=== PATIENT | female | born 1940 | race Caucasian/White ===

== ENCOUNTER 2017-02-03 14:29 | Inpatient (IN) | payer OTHER ==
[2017-02-03] MEDS ORDERED: ACETAMINOPHEN 500 MG TAB PO ONE (15:15)
[2017-02-03] MEDS ORDERED: NS 1,000 ML IV ONE ×2 (15:16→15:28)
--- NOTE | 2017-02-03 15:24 | EDPHY ---
H & P Stated Complaint: LOWER ABD PAIN/DIARRHEA/FEVER/NAUSEA Time Seen by Provider: 02/03/17 15:23 - Personal History Current Tetanus/Diphtheria Vaccine: Unsure - Medical/Surgical History Hx Asthma: No Hx Chronic Respiratory Disease: No Hx Diabetes: No Hx Cardiac Disease: No Hx Renal Disease: No Hx Cirrhosis: No Hx Alcoholism: No Hx HIV/AIDS: No Hx Splenectomy or Spleen Trauma: No Other PMH: BILAT HIP REPLACEMENTS/RA - Social History Smoking Status: Never smoked Constitutional: Initial Vital Signs Temperature (C) 38.7 C H 02/03/17 14:58 Heart Rate 63 02/03/17 14:58 Respiratory Rate 18 02/03/17 14:58 Blood Pressure 116/57 L 02/03/17 14:58 O2 Sat (%) 98 02/03/17 14:58 O2 Delivery Mode Room Air Allergies/Adverse Reactions: No Known Allergies Allergy (Unverified 02/03/17 14:56) Home Medications: Medication Instructions Recorded Herbals/Supplements -Info Only 1 ea PO DAILY 02/03/17 Ibuprofen [Motrin (*)] 200 - 600 mg PO Q4-6PRN PRN 02/03/17 traMADol [Ultram 50 mg (*)] 50 mg PO DAILY PRN 02/03/17 Medical Decision Making - Diagnostics Imaging Results: Imaging Impressions Abdomen CT 02/03/17 15:29 Impression: 1. Inflammatory wall thickening involving the terminal ileum, ascending colon, and transverse colon suggesting infectious/inflammatory colitis. Possible additional inflammatory mid ileal section of small bowel. 2. No drainable abscess, pneumoperitoneum, or bowel obstruction. 3. No evidence of appendicitis. 4. Previous inferior vena caval ligation with multiple venous collaterals in the retroperitoneum and right paracolic gutter. Findings discussed with Emergency Department physician, Forrest Hinton MD, at 1630 hours, 02/03/2017. Final report concurs with initial preliminary interpretation. Imaging: Discussed imaging studies w/ microscopist Radiologist ED Course/Re-evaluation: CHIEF COMPLAINT: Nausea, fever. HISTORY OF PRESENT ILLNESS: This patient is a 76 year old female arriving with her family complaining of nausea, diarrhea, fever, chills, and general abdominal discomfort onset yesterday around 10:00am. She is currently visiting from [place]. Her symptoms came on suddenly yesterday morning following walking the family's dog with her . She had had multiple episodes of diarrhea, but has not vomited. She currently feels very cold and continues to feel quite nauseous. She denies any abnormal food consumption or ill contacts. She denies chest pain, shortness of breath, urinary complaints, or other associated symptoms. REVIEW OF SYSTEMS: A 10 point review of systems was performed and is negative with the exception of the elements mentioned in the history of present illness. PHYSICAL EXAM: HR, BP, O2 Sat, RR. Temp noted General Appearance: Alert, well hydrated, appropriate, and non-toxic appearing. Head: Atraumatic without scalp tenderness or obvious injury Eyes: Pupils equal, round, reactive to light and accommodation, EOMI, no trauma , no injection. Ears: Clear bilaterally, no perforation, normal landmarks Nose: Atraumatic, no rhinorrhea, clear. Throat: There is no erythema or exudates, no lesions, normal tonsils, mucus membranes moist. Neck: Supple, nontender, no lymphadenopathy. Respiratory: No retractions, no distress, no wheezes, and no accessory muscle use. Lungs are clear to auscultation bilaterally. Cardiovascular: Regular rate and rhythm, no murmurs, rubs, or gallops. Good capillary refill all extremities. Gastrointestinal: Diffuse abdominal tenderness. Abdomen is soft, non-distended, no masses, no rebound, no guarding, no peritoneal signs. Musculoskeletal: Normal active ROM of all extremities, atraumatic. Neurological: Alert, appropriate, and interactive. Nonfocal neuro exam. Skin: No rashes, good turgor, no nodules on palpation. Past medical history: Rheumatoid arthritis (not currently taking immunosuppressants) Past surgical history: Hysterectomy, ligation of vena cava, bilateral hip replacements Family history: Noncontributory. Social history: Family at bedside. Visiting from [place]. . DIFFERENTIAL DIAGNOSIS: The differential diagnosis for the patient's nausea and diarrhea included but was not limited to gastroenteritis, gastritis, colitis, appendicitis, and medication side effect. MEDICAL DECISION [id number] year old female presents with two day history of nausea and diarrhea. Temperature 38.7 at triage. Exam reveals diffuse abdominal tenderness. Administered 1000mg PO Acetaminophen. IV established. Plan to administer 4mg IV Zofran and 1L IV NS for symptom relief. Plan for CT abdomen/pelvis. Plan for labs including CBC, BMP, liver, lipase, and UA. Labs show elevated white blood cell count, slight left shift. 16:[address] Kahn, radiologist. CT abdomen shows diffuse colitis of ascending and transverse colon as well as the distal ileum. No evidence of perforation of abscess. Plan to admit for diffuse colitis, diarrhea. Plan to administer 750mg IV Levaquin and 500mg IV Flagyl. 16:58 Reassessed patient. Discussed imaging results, antibiotic administration, and plan for admission. The patient and her family are comfortable with this plan. - Data Points Laboratory Results: Laboratory Results 02/03/17 15:20 02/03/17 15:20 02/03/17 02/03/17 15:20 15:20 WBC 9.59 10^3/uL H 10^3/uL (3.80-9.50) RBC 4.74 10^6/uL 10^6/uL (4.18-5.33) Hgb 14.8 g/dL g/dL (12.6-16.3) Hct 43.7 % % (38.0-47.0) MCV 92.2 fL fL (81.5-99.8) MCH 31.2 pg pg (27.9-34.1) MCHC 33.9 g/dL g/dL (32.4-36.7) RDW 13.6 % % (11.5-15.2) Plt Count 232 10^3/uL 10^3/uL (150-400) MPV 10.2 fL fL (8.7-11.7) Neut % (Auto) 88.9 % H % (39.3-74.2) Lymph % (Auto) 6.2 % L % (15.0-45.0) [place] % (Auto) 4.2 % L % (4.5-13.0) Eos % (Auto) 0.0 % L % (0.6-7.6) Baso % (Auto) 0.3 % % (0.3-1.7) Nucleat RBC Rel Count 0.0 % % (0.0-0.2) Absolute Neuts (auto) 8.53 10^3/uL H 10^3/uL (1.70-6.50) Absolute Lymphs (auto) 0.59 10^3/uL L 10^3/uL (1.00-3.00) Absolute Monos (auto) 0.40 10^3/uL 10^3/uL (0.30-0.80) Absolute Eos (auto) 0.00 10^3/uL L 10^3/uL (0.03-0.40) Absolute Basos (auto) 0.03 10^3/uL 10^3/uL (0.02-0.10) Absolute Nucleated RBC 0.00 10^3/uL 10^3/uL (0-0.01) Immature Gran % 0.4 % % (0.0-1.1) Immature Gran # 0.04 10^3/uL 10^3/uL (0.00-0.10) Sodium 133 mEq/L L mEq/L (134-144) Potassium 3.6 mEq/L mEq/L (3.5-5.2) Chloride 99 mEq/L mEq/L (97-110) Carbon Dioxide 20 mEq/l L mEq/l (22-31) Anion Gap 14 mEq/L mEq/L (8-16) BUN 19 mg/dL mg/dL (7-23) Creatinine 1.0 mg/dL mg/dL (0.6-1.0) Estimated GFR 54 Glucose 123 mg/dL H mg/dL (70-100) Calcium 9.1 mg/dL mg/dL (8.5-10.4) Total Bilirubin 0.8 mg/dL mg/dL (0.1-1.4) Conjugated Bilirubin 0.3 mg/dL mg/dL (0.0-0.5) Unconjugated Bilirubin 0.5 mg/dL mg/dL (0.0-1.1) AST 35 IU/L IU/L (14-46) ALT 43 IU/L IU/L (9-52) Alkaline Phosphatase 73 IU/L IU/L (38-126) Total Protein 6.9 g/dL g/dL (6.3-8.2) Albumin 4.0 g/dL g/dL (3.5-5.0) Lipase 43 IU/L IU/L (23-300) Medications Given: Discontinued Medications Acetaminophen (Tylenol) 1,000 mg PO EDNOW ONE Stop: 02/03/17 15:16 Last Admin: 02/03/17 15:20 Dose: 1,000 mg Hydromorphone HCl (Dilaudid) 0.5 mg IVP EDNOW ONE Stop: 02/03/17 15:29 Last Admin: 02/03/17 15:41 Dose: 0.5 mg Sodium Chloride (Ns) 1,000 mls @ 0 mls/hr IV ONCE ONE PRN Reason: Wide Open Stop: 02/03/17 15:17 Last Admin: 02/03/17 15:20 Dose: 1,000 mls Sodium Chloride (Ns) 1,000 mls @ 0 mls/hr IV EDNOW ONE; Wide Open PRN Reason: Protocol Stop: 02/03/17 15:29 Last Admin: 02/03/17 15:40 Dose: 1,000 mls Levofloxacin/Dextrose (Levaquin 750 Mg (Premix)) 150 mls @ 100 mls/hr IV EDNOW ONE PRN Reason: Protocol Stop: 02/03/17 18:19 Last Admin: 02/03/17 17:13 Dose: 150 mls Metronidazole/Sodium Chloride (Flagyl 500 Mg (Premix)) 100 mls @ 100 mls/hr IV EDNOW ONE PRN Reason: Protocol Stop: 02/03/17 17:49 Last Admin: 02/03/17 17:18 Dose: 100 mls Ondansetron HCl (Zofran) 4 mg IVP EDNOW ONE Stop: 02/03/17 15:29 Last Admin: 02/03/17 15:41 Dose: 4 mg Departure - Departure Disposition: [facility] Acute Clinical Impression: Colitis Diarrhea Qualifiers: Diarrhea type: presumed infectious Qualified Code(s): A09 - Infectious gastroenteritis and colitis, unspecified Condition: Fair Report Scribed for: Forrest Hinton Report Scribed by: Suzanne Sprague Date of Report: 02/03/17 Time of Report: 16:17
[2017-02-03] MEDS ORDERED: ONDANSETRON 4 MG/2 ML VIAL IVP ONE (15:28)
[2017-02-03] MEDS ORDERED: HYDROmorphONE/DILAUDID 1 MG/ML INJ IVP ONE (15:28)
[2017-02-03 15:37] LABS: % IMMATURE GRANULYOCYTES 0.4 % (0.0-1.1); ABSOLUTE IMMATURE GRANULOCYTES 0.04 10^3/uL (0.00-0.10); ADD DIFF? NO; ADD MORPH? NO; ADD SCAN? NO; ATYPICAL LYMPHOCYTE FLAG 0 (0-99); FRAGMENT RBC FLAG 0 (0-99); HEMATOCRIT 43.7 % (38.0-47.0); HEMOGLOBIN 14.8 g/dL (12.6-16.3); LEFT SHIFT FLG 50 (0-99); LIPEMIA HEMOLYSIS FLAG 90 (0-99); MEAN CELL HEMOGLOBIN 31.2 pg (27.9-34.1); MEAN CELL HEMOGLOBIN CONCENTR. 33.9 g/dL (32.4-36.7); MEAN CELL VOLUME 92.2 fL (81.5-99.8); MEAN PLATELET VOLUME 10.2 fL (8.7-11.7); PLATELET CLUMPS FLAG 0 (0-99); PLATELET COUNT 232 10^3/uL (150-400); RED BLOOD CELL COUNT 4.74 10^6/uL (4.18-5.33); RED CELL DISTRIBUTION WIDTH 13.6 % (11.5-15.2)
[2017-02-03 15:53] LABS: ALANINE AMINOTRANSFERASE 43 IU/L (9-52); ALKALINE PHOSPHATASE 73 IU/L (38-126); ANION GAP 14 mEq/L (8-16); ASPARTATE AMINOTRANSFERASE 35 IU/L (14-46); BILIRUBIN,TOTAL 0.8 mg/dL (0.1-1.4); BILIRUBIN-CONJUGATED 0.3 mg/dL (0.0-0.5); BILIRUBIN-UNCONJUGATED 0.5 mg/dL (0.0-1.1); CALCIUM 9.1 mg/dL (8.5-10.4); CARBON DIOXIDE 20 mEq/l (22-31); CHLORIDE 99 mEq/L (97-110); GLOMERULAR FILTRATION RATE 54; GLUCOSE 123 mg/dL (70-100); POTASSIUM 3.6 mEq/L (3.5-5.2); SODIUM 133 mEq/L (134-144); TOTAL PROTEIN 6.9 g/dL (6.3-8.2)
[2017-02-03] MEDS ORDERED: IOPAMIDOL (ISOVUE-300) 100 ML BTL ONE (15:56)
[2017-02-03 18:54] LABS: COLOR YELLOW; LEUKOCYTE ESTERASE,URINE NEGATIVE (NEGATIVE); NITRITE,URINE NEGATIVE (NEGATIVE)
[2017-02-03] MEDS ORDERED: ONDANSETRON 4 MG/2 ML VIAL IVP PRN (19:43)
[2017-02-03] MEDS ORDERED: HYDROmorphONE/DILAUDID 2 MG TAB PO PRN (19:43)
[2017-02-03] MEDS ORDERED: ONDANSETRON DISINTEGRATING 4 MG TAB PO PRN (19:43)
[2017-02-03] MEDS ORDERED: ACETAMINOPHEN 325 MG TAB PO PRN (19:43)
[2017-02-03] MEDS ORDERED: HYDROmorphONE/DILAUDID 1 MG/ML INJ IVP PRN (19:43)
[2017-02-03] MEDS ORDERED: PROMETHAZINE HCL 25 MG/ML INJ IVP PRN (19:43)
[2017-02-03] MEDS: NS W/ 20 KCl/L 1,000 ML IV SCH (20:39)
[2017-02-03] MEDS: KETOROLAC 15 MG/1 ML SDV IVP PRN (21:10)
[2017-02-03] MEDS: PROMETHAZINE HCL 25 MG TAB PO PRN (21:12)
--- NOTE | 2017-02-03 21:54 | PDGENHP ---
History and Physical - Chief Complaint acute diarrhea - History of Present Illness 76-year-old female presenting with acute diarrhea characterized as nonbloody, brown liquid stool with associated nausea, anorexia, fevers, chills, with onset of symptoms at 10:00 a.m. on 02/02/2017, occurring suddenly. Duration has been persistent thereafter. The patient has not received any benefit from ibuprofen. Her pain was somewhat alleviated by the nausea and pain medication she received in the emergency department. She also reports that the nausea is somewhat alleviated by moving her bowels. She has never experienced similar symptoms, and no one else in her family is ill. The patient is currently visiting [place] from [place] and was planning on returning home tomorrow. History Information - Allergies/Home Medication List Allergies/Adverse Reactions: No Known Allergies Allergy (Unverified 02/03/17 14:56) Home Medications: Herbals/Supplements -Info Only 1 ea PO DAILY 02/03/17 [Last Taken Unknown] Ibuprofen [Motrin (*)] 200 - 600 mg PO Q4-6PRN PRN 02/03/17 [Last Taken Unknown] traMADol [Ultram 50 mg (*)] 50 mg PO DAILY PRN 02/03/17 [Last Taken 02/01/17] I have personally reviewed and updated: family history, medical history, social history, surgical history - Past Medical History Additional medical history: Rheumatoid arthritis, not presently on any biologics or steroids, most recent administration of steroids was approximately 6 months ago - Surgical History Additional surgical history: bilateral hip surgery. Received age-appropriate colonoscopy around age 50, has not received a colonoscopy thereafter - Family History Additional family history: no recent sick family contacts, no family history of colon cancer or colon issues - Social History Smoking Status: Never smoked Alcohol Use: None Drug Use: None Additional social history: traveling with her , visiting family locally Review of Systems Review of Systems: ROS: 10pt was reviewed & negative except for what was stated in HPI & below Constitutional: Reports: chills, fever Gastrointestinal: Reports: abdominal pain, diarrhea, nausea Physical Exam Physical Exam: Temp Pulse Resp BP Pulse Ox 37.3 C 63 18 117/54 L 90 L 02/03/17 18:34 02/03/17 18:34 02/03/17 18:34 02/03/17 18:34 02/03/17 18:34 Constitutional: no apparent distress, appears nourished, not in pain, uncomfortable Eyes: PERRL, anicteric sclera, EOMI Ears, Nose, Mouth, Throat: moist mucous membranes, hearing normal, ears appear normal, no oral mucosal ulcers Cardiovascular: systolic murmur ( 2/6 systolic murmur at the apex), No irregularly irregular, No tachycardia, No edema Respiratory: no respiratory distress, no rales or rhonchi, clear to auscultation Gastrointestinal: normoactive bowel sounds, tenderness ( in the upper abdomen), distension ( mild), No guarding Skin: other ( no rashes or abrasions over the abdomen), No erythema, No rash Neurologic: AAOx3, sensation intact bilaterally, No weakness, No facial droop Psychiatric: interacting appropriately, not encephalopathic, thought process linear, anxious Lab Data & Imaging Review 02/03/17 15:20 02/03/17 15:20 WBC 9.59 10^3/uL (3.80-9.50) H 02/03/17 15:20 RBC 4.74 10^6/uL (4.18-5.33) 02/03/17 15:20 Hgb 14.8 g/dL (12.6-16.3) 02/03/17 15:20 Hct 43.7 % (38.0-47.0) 02/03/17 15:20 MCV 92.2 fL (81.5-99.8) 02/03/17 15:20 MCH 31.2 pg (27.9-34.1) 02/03/17 15:20 MCHC 33.9 g/dL (32.4-36.7) 02/03/17 15:20 RDW 13.6 % (11.5-15.2) 02/03/17 15:20 Plt Count 232 10^3/uL (150-400) 02/03/17 15:20 MPV 10.2 fL (8.7-11.7) 02/03/17 15:20 Neut % (Auto) 88.9 % (39.3-74.2) H 02/03/17 15:20 Lymph % (Auto) 6.2 % (15.0-45.0) L 02/03/17 15:20 [place] % (Auto) 4.2 % (4.5-13.0) L 02/03/17 15:20 Eos % (Auto) 0.0 % (0.6-7.6) L 02/03/17 15:20 Baso % (Auto) 0.3 % (0.3-1.7) 02/03/17 15:20 Nucleat RBC Rel Count 0.0 % (0.0-0.2) 02/03/17 15:20 Absolute Neuts (auto) 8.53 10^3/uL (1.70-6.50) H 02/03/17 15:20 Absolute Lymphs (auto) 0.59 10^3/uL (1.00-3.00) L 02/03/17 15:20 Absolute Monos (auto) 0.40 10^3/uL (0.30-0.80) 02/03/17 15:20 Absolute Eos (auto) 0.00 10^3/uL (0.03-0.40) L 02/03/17 15:20 Absolute Basos (auto) 0.03 10^3/uL (0.02-0.10) 02/03/17 15:20 Absolute Nucleated RBC 0.00 10^3/uL (0-0.01) 02/03/17 15:20 Immature Gran % 0.4 % (0.0-1.1) 02/03/17 15:20 Immature Gran # 0.04 10^3/uL (0.00-0.10) 02/03/17 15:20 Sodium 133 mEq/L (134-144) L 02/03/17 15:20 Potassium 3.6 mEq/L (3.5-5.2) 02/03/17 15:20 Chloride 99 mEq/L (97-110) 02/03/17 15:20 Carbon Dioxide 20 mEq/l (22-31) L 02/03/17 15:20 Anion Gap 14 mEq/L (8-16) 02/03/17 15:20 BUN 19 mg/dL (7-23) 02/03/17 15:20 Creatinine 1.0 mg/dL (0.6-1.0) 02/03/17 15:20 Estimated GFR 54 02/03/17 15:20 Glucose 123 mg/dL (70-100) H 02/03/17 15:20 Calcium 9.1 mg/dL (8.5-10.4) 02/03/17 15:20 Total Bilirubin 0.8 mg/dL (0.1-1.4) 02/03/17 15:20 Conjugated Bilirubin 0.3 mg/dL (0.0-0.5) 02/03/17 15:20 Unconjugated Bilirubin 0.5 mg/dL (0.0-1.1) 02/03/17 15:20 AST 35 IU/L (14-46) 02/03/17 15:20 ALT 43 IU/L (9-52) 02/03/17 15:20 Alkaline Phosphatase 73 IU/L (38-126) 02/03/17 15:20 Total Protein 6.9 g/dL (6.3-8.2) 02/03/17 15:20 Albumin 4.0 g/dL (3.5-5.0) 02/03/17 15:20 Lipase 43 IU/L (23-300) 02/03/17 15:20 Urine Color YELLOW 02/03/17 18:45 Urine Appearance CLEAR 02/03/17 18:45 Urine pH 5.0 (5.0-7.5) 02/03/17 18:45 Ur Specific [place] > 1.035 (1.002-1.030) H 02/03/17 18:45 Urine Protein NEGATIVE (NEGATIVE) 02/03/17 18:45 Urine Ketones NEGATIVE (NEGATIVE) 02/03/17 18:45 Urine Blood 1+ (NEGATIVE) H 02/03/17 18:45 Urine Nitrate NEGATIVE (NEGATIVE) 02/03/17 18:45 Urine Bilirubin NEGATIVE (NEGATIVE) 02/03/17 18:45 Urine Urobilinogen NEGATIVE EU (0.2-1.0) 02/03/17 18:45 Ur Leukocyte Esterase NEGATIVE (NEGATIVE) 02/03/17 18:45 Urine RBC 1-3 /hpf (0-3) 02/03/17 18:45 Urine WBC 1-3 /hpf (0-3) 02/03/17 18:45 Ur Epithelial Cells NONE SEEN /lpf (NONE-1+) 02/03/17 18:45 Urine Glucose NEGATIVE (NEGATIVE) 02/03/17 18:45 Visualized and Interpreted imaging results: Yes Interpretation: CT of the abdomen demonstrates ascending and transverse colitis without any appendicitis, no bowel obstruction, no abscess Assessment & Plan Assessment: 76-year-old female presents with acute colitis complicated by acute hyponatremia Plan: 1. Colitis. Acute, new problem this provider, further workup indicated. Symptoms include diarrhea, nausea, abdominal pain and anorexia, most likely secondary to infectious colitis given that the patient has never experienced similar symptoms in is unlikely that she has developed inflammatory bowel disorder at this age - it also seems unlikely that the patient has developed an inflammatory bowel disorder in the setting of biologic agents, as the patient has not been on any biologics and her most recent treatment for rheumatoid arthritis was 6 months ago with steroids, and she is not currently receiving any methotrexate - discussed with Dr. Forrest Hinton, he and I both agree that the patient is unsafe to discharge home with her symptoms uncontrolled, and we will initiate empiric metronidazole and Flagyl, treating for possible bacterial colitis, and also sending a GI pathogen PCR once stool is available - if C diff test comes back negative, the patient can receive symptomatic Imodium - provide IV anti-inflammatory medication, IV pain and antiemetics supportively with IV fluids - bowel rest with clear liquids tonight, advance diet tomorrow if patient's condition is improved - repeat CBC to evaluate for leukocytosis tomorrow on 2. Hyponatremia. Acute, secondary to renal hypoperfusion in hypovolemia, give normal saline, repeat serum sodium level in a.m. 3. Hypokalemia. Replete Diet. Clear liquid diet, advance tomorrow if appropriate Prophylaxis. High risk patient, Lovenox 40 Code. Full, is [place] Disposition. Anticipated discharge is 02/04/2017, pending stabilization of condition outlined above. If patient requires extended length stay to span greater than 2 midnights for reasonable medical necessity, she will be upgraded to inpatient admission status at that time.
[2017-02-04] MEDS: traMADol 50 MG TAB PO PRN ×2 (02:07→13:00)
[2017-02-04 02:30] LABS: OCCULT BLOOD FECES POSITIVE (NEGATIVE)
[2017-02-04] MEDS: NS W/ 20 KCl/L 1,000 ML IV SCH ×2 (04:58→14:02)
[2017-02-04 05:48] LABS: ANION GAP 10 mEq/L (8-16); CALCIUM 8.3 mg/dL (8.5-10.4); CARBON DIOXIDE 21 mEq/l (22-31); CHLORIDE 104 mEq/L (97-110); GLOMERULAR FILTRATION RATE 54; GLUCOSE 90 mg/dL (70-100); MAGNESIUM 1.7 mg/dL (1.6-2.3); POTASSIUM 3.8 mEq/L (3.5-5.2); SODIUM 135 mEq/L (134-144)
[2017-02-04 06:11] LABS: ADD MORPH? NO; ADD SCAN? YES; ATYPICAL LYMPHOCYTE FLAG 0 (0-99); FRAGMENT RBC FLAG 10 (0-99); HEMATOCRIT 39.2 % (38.0-47.0); LIPEMIA HEMOLYSIS FLAG 80 (0-99); MEAN CELL HEMOGLOBIN 31.3 pg (27.9-34.1); MEAN CELL HEMOGLOBIN CONCENTR. 33.2 g/dL (32.4-36.7); MEAN CELL VOLUME 94.2 fL (81.5-99.8); MEAN PLATELET VOLUME 10.6 fL (8.7-11.7); PLATELET CLUMPS FLAG 10 (0-99); PLATELET COUNT 184 10^3/uL (150-400); RED BLOOD CELL COUNT 4.16 10^6/uL (4.18-5.33); RED CELL DISTRIBUTION WIDTH 13.5 % (11.5-15.2)
[2017-02-04 06:18] LABS: LEFT SHIFT FLG 300 (0-99)
[2017-02-04] MEDS: PROMETHAZINE HCL 25 MG TAB PO PRN (07:18)
[2017-02-04] MEDS: KETOROLAC 15 MG/1 ML SDV IVP PRN (07:19)
[2017-02-04 07:30] LABS: ADD DIFF? YES; SCAN POSITIVE
[2017-02-04 07:35] LABS: LARGE PLATELETS PRESENT; PLATELET ESTIMATE ADEQUATE (ADEQ); TOXIC GRANULATION PRESENT
[2017-02-04] MEDS: ENOXAPARIN 40 MG/0.4 ML SYR SC SCH (08:53)
[2017-02-04] MEDS ORDERED: Herbals/Supplements -Info Only PO SCH (09:00)
--- NOTE | 2017-02-04 16:45 | HOSPPROG ---
Hospitalist Progress Note Assessment/Plan: DIAGNOSES: # acute salmonella gastroenteritis # intractable diarrhea # nausea vomiting # dehydration # K loss due to above PLANS: -continue IV hydration here -antidiarrheal -will discontinue antibiotic now as she should resolve without it (reviewed w Dr Graff) -discharge once stablized to point she can hydrate herself orally sufficiently -as she currently requires ongoing inpatient hydration intravenously will need to change her to inpatient status at this point SUBJECTIVE: still quite a bit of diarrhea without blood still w nausea interfering with oral hydration some orthostatic sxs remain OBJECTIVE Vitals reviewed: stable with low grade fever Exam: alert oriented skin warm dry color ok resps not labored lungs clear BSs heart regular abd soft nondistended nontender, bowel sounds present limbs warm, no edema iv site ok stool study shows positive for Salmonella species Objective: Vital Signs Temp Pulse Resp BP Pulse Ox 36.7 C 54 L 14 100/55 L 92 02/04/17 12:00 02/04/17 12:00 02/04/17 12:00 02/04/17 12:00 02/04/17 12:00 Microbiology 02/04/17 02:10 Gastrointestinal Tract Panel (PCR) - Final Stool Salmonella Species Fecal Leukocyte Stain - Final Laboratory Results 02/04/17 04:47 02/04/17 04:47 02/03/17 02/04/17 02/05/17 06:59 06:59 06:59 Output Total 400 300 Balance -400 -300 ICD10 Worksheet Patient Problems: Problems Problem Status Onset Colitis Acute Diarrhea Acute
[2017-02-05] MEDS: NS W/ 20 KCl/L 1,000 ML IV SCH ×2 (00:15→23:03)
[2017-02-05] MEDS: traMADol 50 MG TAB PO PRN (04:37)
[2017-02-05] MEDS: ENOXAPARIN 40 MG/0.4 ML SYR SC SCH (08:19)
--- NOTE | 2017-02-05 09:50 | HOSPPROG ---
Hospitalist Progress Note Assessment/Plan: Patient is a 76-year-old female who presented the emergency room with diarrhea and associated nausea fever and chills. She is here visiting from the [place] area. Today is my 1st encounter with the patient. Chart reviewed. # acute salmonella gastroenteritis Continues to have frequent loose bowel movements Will continue hydration DC IV antibiotics. This should improve with time and hydration # intractable diarrhea Will recheck her labs today # rheumatoid arthritis Not on steroids or any biologics # nausea & vomiting none today trial of brat diet # dehydration due to the above # hypokalemia will add electrolyte protocol and follow #bradycardia asymptomatic #dvt prophylaxis: LMWH #Plan: if having less diarrhea, can dc tomorrow, had multiple bouts this morning Subjective: Juttamis concerned she is immunocompromised and has salmonella/ has no complaints except for some abdominal discomfort Objective: Vital Signs Temp Pulse Resp BP Pulse Ox 37.0 C 50 L 16 127/62 H 93 02/05/17 07:51 02/05/17 07:51 02/05/17 07:51 02/05/17 07:51 02/05/17 07:51 02/04/17 02/05/17 02/06/17 05:59 05:59 05:59 Intake Total 500 Output Total 1950 Balance -1450 - Physical Exam Constitutional: no apparent distress, appears nourished Eyes: PERRL Ears, Nose, Mouth, Throat: hearing normal Cardiovascular: regular rate and rhythym Respiratory: no respiratory distress Gastrointestinal: soft, non-tender abdomen, No normoactive bowel sounds ( hyperactive) Skin: warm, normal color Musculoskeletal: full muscle strength Neurologic: AAOx3 Psychiatric: interacting appropriately ICD10 Worksheet Patient Problems: Problems Problem Status Onset Colitis Acute Diarrhea Acute
[2017-02-05 13:00] LABS: ALANINE AMINOTRANSFERASE 33 IU/L (9-52); ALBUMIN 2.4 g/dL (3.5-5.0); ALKALINE PHOSPHATASE 54 IU/L (38-126); ANION GAP 8 mEq/L (8-16); ASPARTATE AMINOTRANSFERASE 35 IU/L (14-46); BILIRUBIN,TOTAL 0.2 mg/dL (0.1-1.4); CARBON DIOXIDE 16 mEq/l (22-31); CHLORIDE 111 mEq/L (97-110); CREATININE 0.8 mg/dL (0.6-1.0); GLOMERULAR FILTRATION RATE > 60; GLUCOSE 79 mg/dL (70-100); POTASSIUM 3.4 mEq/L (3.5-5.2); SODIUM 135 mEq/L (134-144); TOTAL PROTEIN 4.9 g/dL (6.3-8.2)
[2017-02-06] MEDS: traMADol 50 MG TAB PO PRN ×2 (00:56→07:22)
[2017-02-06 04:30] VITALS: PULSE 50
[2017-02-06 05:43] LABS: ALANINE AMINOTRANSFERASE 36 IU/L (9-52); ALBUMIN 2.6 g/dL (3.5-5.0); ALKALINE PHOSPHATASE 50 IU/L (38-126); ANION GAP 10 mEq/L (8-16); ASPARTATE AMINOTRANSFERASE 35 IU/L (14-46); BILIRUBIN,TOTAL 0.3 mg/dL (0.1-1.4); CALCIUM 8.5 mg/dL (8.5-10.4); CARBON DIOXIDE 18 mEq/l (22-31); CHLORIDE 113 mEq/L (97-110); CREATININE 0.8 mg/dL (0.6-1.0); GLOMERULAR FILTRATION RATE > 60; GLUCOSE 84 mg/dL (70-100); POTASSIUM 3.7 mEq/L (3.5-5.2); SODIUM 141 mEq/L (134-144); TOTAL PROTEIN 4.9 g/dL (6.3-8.2)
[2017-02-06 08:14] VITALS: BP 152/57; RESP 18; TEMP 98.5; O2SAT 94
--- NOTE | 2017-02-06 08:33 | HOSPPROG ---
Hospitalist Progress Note Assessment/Plan: Patient is a 76-year-old female who presented the emergency room with diarrhea and associated nausea fever and chills. She is here visiting from the [place] area. # acute salmonella gastroenteritis having less loose stools # intractable diarrhea better # rheumatoid arthritis Not on steroids or any biologics # nausea & vomiting none today # dehydration due to the above # hypokalemia improved #bradycardia asymptomatic #dvt prophylaxis: LMWH #Plan:dc after breakfast if doing well Subjective: Zaida is feeling much better today/no complaints. Objective: Vital Signs Temp Pulse Resp BP Pulse Ox 36.9 C 50 L 18 152/57 H 94 02/06/17 08:00 02/06/17 08:00 02/06/17 08:00 02/06/17 08:00 02/06/17 08:00 Laboratory Results 02/06/17 05:00 02/05/17 02/06/17 02/07/17 05:59 05:59 05:59 Intake Total 500 500 Output Total 1949 2049 120 Balance -1450 -1550 -120 - Physical Exam Constitutional: no apparent distress, appears nourished Eyes: PERRL Ears, Nose, Mouth, Throat: hearing normal Respiratory: no respiratory distress Skin: warm Musculoskeletal: full muscle strength Neurologic: AAOx3 Psychiatric: interacting appropriately ICD10 Worksheet Patient Problems: Problems Problem Status Onset Colitis Acute Diarrhea Acute
[2017-02-06] MEDS: ENOXAPARIN 40 MG/0.4 ML SYR SC SCH (08:36)
[2017-02-06] MEDS ORDERED: [UNRECOGNIZED DRUG - OTHER] PO SCH (09:00)
--- NOTE | 2017-02-06 11:51 | GDS ---
[f rep st] DISCHARGE SUMMARY DISCHARGE DIAGNOSES: 1. Acute Salmonella gastroenteritis. 2. Intractable diarrhea. 3. Rheumatoid arthritis. 4. Nausea and vomiting. 5. Dehydration. 6. Hypokalemia. 7. Bradycardia. HISTORY OF PRESENT ILLNESS: Briefly, the patient is a very nice 76-year-old woman who presented to the emergency room with nausea, fevers, chills and diarrhea. No one else in her family is ill. She had a CT of the abdomen, which demonstrated transverse colitis without any appendicitis, bowel obstruction, or abscess. Stools were sent for PCR. Her stool culture grew out Salmonella species. Initially, she was treated with antibiotics. These were discontinued. She was treated with IV hydration, and she is markedly better. HOSPITAL COURSE: 1. Salmonella gastroenteritis. She improved with supportive care. Recommended that she make sure her food is thoroughly cooked. 2. Intractable diarrhea, resolving. 3. Rheumatoid arthritis. She is not on any steroids or any biologics. 4. Nausea and vomiting, none further. 5. Dehydration, eating and drinking well. 6. Hypokalemia, improved. 7. Bradycardia. She is asymptomatic of this. CONDITION ON DISCHARGE: Stable. Blood pressure is 152/57. Heart rate is 50. Respiratory rate is 18. O2 sats on room air 94%, temperature 36.9 Celsius. MEDICATIONS ON DISCHARGE: Please see the EMR. DISCHARGE INSTRUCTIONS: 1. Recommending no Imodium, just to give this time to get better. Also recommending a low-residue diet and to take foods in with potassium if diarrhea is ongoing. Also, it is important she stay hydrated. 2. If she develops fever, chills, chest pain, or shortness of breath, return to the ER. Greater than 30 minutes discharging and coordinating care. /[id number]/MODL MTDD
--- NOTE | 2017-02-06 18:07 | ASDISCHSUM ---
Discharge Information Plan Status:Home with No Needs Medically Cleared to Leave: Discharge Date:02/06/2017 10:52 AM CM D/C Disposition:Home, Routine, Self-Care ADT D/C Disposition:Home, Routine, Self-Care Projected Discharge Date:02/06/2017 10:52 AM Transportation at D/C: Discharge Delay Reason: Follow-Up Date:02/06/2017 10:52 AM Discharge Slot: Final Diagnosis: Placement Information Patient Contact Information Contact Name:GLENN Relationship: Address:[address] [place] [address] Work Phone: City:[place] Alternate Phone: [facility]/Zip Code:[place] [address] Email: Financial Information Financial Class: Primary Plan Desc:MEDICARE INPATIENT Primary Plan Number:[id number] Secondary Plan Desc:EQUITABLE INSURANCE Secondary Plan Number:[id number] Assessment Information Intervention Information Intervention Type:*SARAH-Signed Date of Service:02/04/2017 09:29 AM Patient Type:Observation Staff Member:Elvia Carnes Hours: Discipline: Severity: Comment:
== END 2017-02-06 10:52 | disposition home or self-care (01) | DRG 373 ==
LOC: F3E 18:18 → OBSVTOIN 02-04 17:34
PROVIDERS: ADMIT Internal Medicine; ATTEND Internal Medicine
DX: A02.0 Salmonella enteritis (principal); M06.9 Rheumatoid arthritis, unspecified; E86.0 Dehydration; E87.6 Hypokalemia; R00.1 Bradycardia, unspecified; Z96.643 Presence of artificial hip joint, bilateral
CPT/HCPCS: 96365; 96366; 97116-GP; 97161-GP; G0378; G8978-GP-CI; G8979-GP-CI; G8980-GP-CI; J1170; J1650; J1885; J1956; J2405; Q9967